=== PATIENT | male | born 1965 | race Two or more races ===

== ENCOUNTER 2017-08-07 22:11 | Observation (INO) | payer BC ==
[~2017-08-07] VITALS: Ht 167.6 cm; Wt 86.4 kg
[2017-08-07 22:43] LABS: BASOPHILS 0.1 % (0-2); EOSINOPHILS 1.2 % (0-7); HEMOGLOBIN 13.4 g/dL (13.5-17.5); IMMATURE GRANULOCYTES 0.3 % (0-5); LYMPHOCYTES 37.6 % (15-50); MCH 28.9 pg (26.0-34.0); MCHC 33.5 g/dL (31.0-37.0); MCV 86.2 fL (80.0-100.0); MEAN PLATELET VOLUME 9.2 fL (7.4-10.4); MONOCYTES 6.7 % (2-11); NEUTROPHILS 54.1 % (40-80); PLATELET COUNT 213 10x3/uL (130-400); RBC 4.64 10x6/uL (4.20-6.10); RDW 13.9 % (11.5-14.5); WBC 6.9 10x3/uL (4.8-10.8)
[2017-08-07 22:58] LABS: ALBUMIN 3.6 g/dL (3.4-5.0); ALKALINE PHOSPHATASE 88 U/L (46-116); ALT (SGPT) 32 U/L (10-68); CALC OSMOLALITY 280 mosm/kg (275-300); CALCIUM 8.8 mg/dL (8.5-10.1); CHLORIDE - SERUM 103 mmol/L (98-107); CREATININE - SERUM 0.9 mg/dL (0.6-1.3); GLUCOSE 109 mg/dL (74-106); POTASSIUM - SERUM 3.8 mmol/L (3.5-5.1); PROTEIN - SERUM 7.3 g/dL (6.4-8.2); SODIUM 140 mmol/L (136-145); UREA NITROGEN 16 mg/dL (7-18); eGFR NON AFRICAN AMERICAN > 90 mL/min (90-120)
[2017-08-07 23:07] LABS: CHOL - HDL RATIO 5.8 ratio (2.3-4.9); CHOLESTEROL, TOTAL 208 mg/dL (0-200); CKMB 1.7 U/L (0.0-3.6); CREATINE KINASE 128 UL (21-232); HDL CHOLESTEROL 36 mg/dL (32-96); LDL CHOLESTEROL 95 mg/dL (0-100); LDL-HDL RATIO 2.6 ratio (1.5-3.5); TRIGLYCERIDE 386 mg/dL (30-200)
[2017-08-07 23:08] LABS: TROPONIN-I < 0.017 ng/mL (0.000-0.060)
[2017-08-08] VITALS: BP 130/65
[2017-08-08 01:27] VITALS: BP 130/65; Ht 167.6 cm; Wt 86.4 kg
[2017-08-08 04:00] VITALS: BP 117/63
[2017-08-08 05:16] LABS: CKMB 1.2 U/L (0.0-3.6); CREATINE KINASE 98 UL (21-232); TROPONIN-I < 0.017 ng/mL (0.000-0.060)
--- NOTE | 2017-08-08 07:30 | NUR ---
RECEIVED PT IN BED [id number] RESP UNLABORED DENIES ANY NEEDS OR DISCOMFORT AT THIS TIME
[2017-08-08 08:40] VITALS: BP 127/61
[2017-08-08] MEDS ORDERED: FENOFIBRATE134 MG PO (11:12)
[2017-08-08] MEDS ORDERED: ASPIRIN81 MG PO (11:12)
--- NOTE | 2017-08-08 12:10 | NUR ---
REVIEWED DISCHARGE INSTRUCTIONS WITH PT STATES UNDERSTANDING COPY GIVEN DCD SALINE LOCK TO LAC WITH IV CATHETER INTACT SITE FREE OF REDNESS OR EDEMA PT DISCHARGED HOME IN STABLE CONDITION WITH ALL PERSONAL BELONGINGS VIA W/C
[2017-08-08 12:30] VITALS: BP 113/64
== END 2017-08-08 12:10 | disposition home or self-care (01) ==
LOC: D.ER 22:11 → D.M2 23:46 → OBSVTIME 23:46 → D.M2 23:46
PROVIDERS: Emergency Medicine; ADMIT Internal Medicine Interventional Cardiology
DX: R07.9 Chest pain, unspecified (principal); K21.9 Gastro-esophageal reflux disease without esophagitis; E78.5 Hyperlipidemia, unspecified; I10 Essential (primary) hypertension